=== PATIENT | female | born 1955 | race Caucasian/White ===

== ENCOUNTER 2022-08-10 14:25 | Outpatient (CLI) | payer MEDICARE, BC, SELFPAY ==
--- OUTSIDE RECORDS SUMMARY | 2022-08-10 08:30 | XMS_ITS | Clinical Summary ---
:1955 Author Organization [facility] [place] [address] Care Team Providers Name Role Phone Unavailable Primary Care Provider Unavailable Allergies Active Allergy Reactions Severity Noted Date Comments Sulfamethoxazole-Trimethoprim Nausea Only 12/17/2014 Codeine Edema 08/16/2007 Hydrocodone-Acetaminophen Hives, Shortness Of Breath 1 Penicillins Rash 08/16/2007 Medications Medication Sig Dispensed Refills Start Date End Date Status aspirin 81 mg tablet Take 1 tablet by 1 tablet 0 09/18/2010 Active mouth once daily with a meal. calcium with vitamin D3 Take 1 tablet by 0 6 Active (CALCIUM 500+D) tablet mouth 3 times daily with meals. lancets (ACCU-CHEK Test 2 times per 200 Each 3 01/30/2016 Active MULTICLIX day. LANCET)Indications: Diabetes type 2, uncontrolled Blood-Glucose Meter Dispense glucose 1 Device 0 08/05/2016 Active (CONTOUR NEXT meter, test METER)Indications: strips and Uncontrolled diabetes lancets covered mellitus type 2 without by the patient complications, insurance. Test unspecified computer terminal operator 2 times per day. insulin use status hydrOXYzine HCl 1/2-1 tab at 10 tablet 0 02/28/2019 Active (ATARAX) 25 mg night at need tabletIndications: for anxiety Claustrophobia attack amLODIPine (NORVASC) 10 TAKE 1 TABLET BY 90 tablet 2 9 Active mg tabletIndications: MOUTH ONCE Hypertension, DAILY. unspecified type clobetasol cream 0.05% Use 1-2 times a 45 g 0 06/26/2019 Active (TEMOVATE) 0.05 % day on foot til creamIndications: resolved Granuloma annulare losartan (COZAAR) 100 Take 1 tablet by 90 tablet 3 06/26/2019 Active mg tabletIndications: mouth once HTN (hypertension) daily. glipiZIDE TAKE TWO TABLETS 60 tablet 0 10/27/2019 Ac tive extended-release ONCE DAILY (GLUCOTROL XL) 10 mg BEFORE A MEAL Extended-Release tabletIndications: Type 2 diabetes mellitus with hyperglycemia, without long-term current use of insulin (HC) metFORMIN (GLUCOPHAGE TAKE 4 TABLETS 120 tablet 0 12/01/2019 Active XR) 500 mg BY MOUTH DAILY Extended-Release tabletIndications: Type 2 diabetes mellitus with hyperglycemia, without long-term current use of insulin (HC) atorvastatin (LIPITOR) TAKE 1 TABLET BY 30 tablet 0 02/01/2020 Active 40 mg MOUTH AT tabletIndications: BEDTIME. 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 Osteoarthritis of both knees 08/15/2015 Mixed hyperlipidemia 05/15/2011 Diabetes mellitus type II 08/24/2010 HTN (hypertension) 10/29/2008 Other Atopic Dermatitis and Related Conditions 008 Resolved Problems Problem Noted Date Resolved Date Vitamin D deficiency 08/22/2010 06/27/2013 Rotator cuff tear 08/19/2010 06/27/2013 Tobacco use disorder 08/19/2010 06/27/2013 Dislocated shoulder 05/13/2010 06/27/2013 Postmenopausal bleeding 10/29/2008 05/13/2010 Immunizations Name Administration Dates Next Due Influenza, IIV3 (Age >=3 years) 10/29/2008 Influenza, IIV4 11/01/2018, 11/24/2016, 02/27/2016, 08/28/2014 Td (Age >=7 Years) 05/30/2003 Tdap 08/28/2013 Zoster (Zostavax-ZVL, live) 12/17/2014 Family History Medical History Relation Name Comments Hyperlipidemia Brother Hypertension Brother Hyperlipidemia Mother Other Mother Brain anurysm Hypertension Sister Cancer-breast No Family History Cancer-colon No Family History Relation Name Status Comments Brother Father Alive chf Mother (Age 83) no heart probl ems Sister Social History Tobacco Use Types Packs/Day Years Used Date Former Smoker Cigarettes 0.5 30 Quit: 11/29/19 16 Smokeless Tobacco: Never Used Tobacco Cessation: Counseling Given: Yes Comments: off an on for 30 years Alcohol Use Standard Drinks/Week Comments Yes 0 (1 standard drink = 0.6 oz pure alcoho l) Alcohol Habits Answer Date Recorded How often do you have a drink containing alcohol? 2-4 times a month 06/26/2019 How many drinks containing alcohol do you have on a 1 or 2 06/26/2019 typical day when you are drinking? How often do you have six or more drinks on one Never 06/26/2019 occasion? Comment: Not asked Sex Assigned at Date Recorded Not on file Obstetrics History Para Term AB IAB SAB Ectopic Multiple Living Live Births 2 2 2 0 0 0 0 0 0 2 2 Date Outcome GA Total Labor/2nd/3rd Weight Sex Delivery Anes PTL Jenn A 1 A5 Name Clin Labor Term Vag Jacki ng Term Vag Jacki ng Last Filed Vital Signs Vital Sign Reading Time Taken Comments Blood Pressure 111/73 06/26/2019 9:32 AM CDT Pulse 83 06/26/2019 9:32 AM CDT Temperature 36.9 ??C (98.4 ??F) 06/03/2017 11:23 AM CDT Respiratory Rate 18 01/30/2016 4:10 PM PRINCIPAL CLERK Oxygen Saturation 98% 06/26/2019 9:32 AM CDT Inhaled Oxygen Concentration - - Weight 98.4 kg (217 lb) 06/26/2019 9:32 AM CDT Height 161.7 cm (5' 3.66) 02/28/2019 3:30 PM CDT Body Mass Index 37.65 02/28/2019 3:30 PM CDT Plan of Treatment Health Maintenance Due Date Last Done Comments COVID-19 vaccine series (#1) 1955 Hepatitis C screening for age 0403/14/1972 18-79 Zoster (shingles) series for age 0302/11/2015 12/17/2014 50+ (2 of 3) DEXA/DXA scan for age 65+ 2019 Pneumococcal series for age 65+ (1 2019 - PCV) Depression screening for age 12+ 11/01/2019 11/01/2018, 09/2017, 01/30/2016 BMI (ht and wt on same day) for 02/29/2020 02/28/2019, 12/02/2018, age 18+ 06/20/2018, Additional history exists Mammogram for age 45-75 05/16/2020 05/16/2019, 05/12/2018, 05/10/2017, Additional history exists Influenza for age 65+ 07/30/2022 11/01/2018, 11/24/2016, 02/27/2016, Additional history exists Colonoscopy through age 75 06/09/2023 06/09/2018, 8, 11/01/2008 Tetanus booster 08/28/2023 08/28/2013, 08/28/2013, 05/30/2003 Lipids for age 45-75 06/26/2024 06/26/2019, 02/28/2019, 11/01/2018, Additional history exists Tdap Completed 08/28/2013 Results Not on filefrom Last 3 Months Insurance Payer Benefit Plan / Subscriber ID Effective Dates Phone Addre ss Type Group BLUE CROSS BLUE CROSS OF [id number] 2016-Present [address] [place] [address] (Work) [phone]
[2022-08-10 13:20] LABS: Creatinine Urine 137.1 mg/dL
[2022-08-10 13:26] LABS: Microalbumin Creatinine Ratio 60 mg/g (0-30); Microalbumin Urine 9 mg/dL
[2022-08-10 14:38] LABS: Chloride* 103 mmol/L (96-114); Potassium* 4.8 mmol/L (3.6-5.1); Sodium* 139 mmol/L (135-149)
[2022-08-10 14:40] LABS: Cholesterol* 146 mg/dL (90-199); Creatinine* 0.7 mg/dL (0.5-1.5); Estimated Glomerular Filt Rate 94 ml/min
[2022-08-10 14:41] LABS: Blood Urea Nitrogen* 15 mg/dL (7-30); Calcium* 9.3 mg/dL (8.4-10.6); Carbon Dioxide* 27 mmol/L (20-32); Glucose* 208 mg/dL (60-115); HDL Cholesterol* 47 mg/dL (>=50); LDL Cholesterol Calculated 63 mg/dL (<100); Triglycerides* 181 mg/dL (40-149)
== END 2022-08-10 14:26 | disposition home or self-care (01) ==
PROVIDERS: PCP Family Medicine; Visit Provider Family Medicine
DX: E11.9 Type 2 diabetes mellitus without complications (principal); I10 Essential (primary) hypertension; E55.9 Vitamin D deficiency, unspecified; E78.5 Hyperlipidemia, unspecified; F41.9 Anxiety disorder, unspecified; E66.9 Obesity, unspecified; Z13.6 Encounter for screening for cardiovascular disorders; R80.9 Proteinuria, unspecified
CPT/HCPCS: 80048; 80061; 82043; 82570

== ENCOUNTER 2022-11-02 13:45 | Outpatient (RCR) | payer MEDICARE, BC, SELFPAY ==
--- NOTE | 2022-09-02 16:10 | PT.OPEX ---
Please sign the attached PT evaluation. Thank you. PT [facility] PT [facility] Outpatient Eval Start: 08/28/22 15:53 Freq: Status: Active Protocol: Document 09/02/22 12:25 TLQ (Rec: 09/02/22 16:04 TLQ [id number]) E-signed By Dana Pichardo DPT Physical Therapy Outpatient Evaluation Insurance Information Recert Due Date 12/01/22 Insurance Name Medicare B,Blue Cross/Blue Shield Medical Diagnosis Pain in R knee Chronic pain Treating Diagnosis Pain in R knee (M25.561) Stiffness of R knee (M25.661) Referring MD Keller Subjective Subjective Patient reports she has pain in her R knee, has been going on for a few years. Pain primarily occurs on inside of knee when walking up/down a hill or when going up/down stairs. Can walk 1.5 miles on flat ground before it hurts. Knee feels stiff after periods of prolonged sitting. Saw her MD a few weeks ago, was prescribed ibuprofen which has been helping relieve some of her pain. X-rays were taken at this appointment, indicated significant osteoarthritis. Has tried a knee brace in the past but doesn't wear it very often. If she's had a long day of walking her knee can bother her at night making it difficult to sleep. Pain Comments No pain at rest 5/10 when walking downhill Current Work Status Retired Precautions Treatment Precautions/Contraindications Has vertigo - requires slow position changes, does not tolerate laying completely flat Therapy Limitations/Systems Review Not Limited Objective Range of Motion Knee: L 1-5-122 R 2-8-126 Strength Hip: flexion - L 4, R 4- abduction - 5 adduction - 5 internal rotation - L 5, R 4- medial knee pain external rotation - L 4+, R 4 Knee: flexion - 5 extension - 5 Ankle/foot: dorsiflexion - 5 plantarflexion - L 23 DLHR, R 20 DLHR 50% excursion Palpation Non tender with palpation of surrounding landmarks and soft tissues R patellar hypomobility in all glides R posterior tibial glide hypomobility Balance & Gait Balance: 5xSTS - 10 seconds SLS - L 7 seconds, R <1 seconds Gait - Trendelenburg on R Other/Pertinent Objective Knee: Tibiofemoral distraction - positive response Thessaly test - positive on R for medial joint pain Functional Test Performed & Score LEFS - 64/80 Assessment Assessment/Impression Patient is a 67 year old female who presents to physical therapy today with chronic R knee pain. Recently had x-rays taken which indicated knee osteoarthritis, likely in medial compartment based off examination findings today. Pain primarily limits the patients ability to navigate stairs and ambulate over uneven terrain pain-free. Upon examination she had hip weakness and medial knee pain with Thessaly test. Possible meniscal involvement with pain , likely due to age-related changes due to lack of reported trauma to the knee. Patient lacks full active knee extension and was hypomobile with posterior tibial glide. Difficulty balancing on R LE, ambulated with R Trendelenburg pattern. She will benefit from skilled interventions to increase LE strength, balance, and AROM in order to reduce intensity of R knee symptoms during weightbearing. Primary Functional Limitations pain in R knee, stiffness in knee after prolonged sitting, pain in R knee with stairs, pain when walking downhill Plan of Care Rehabilitation Potential Good Physical Therapy Goals STG - Patient will improve SLS on R to 5 seconds for improved balance in 4 weeks. STG - Patient will decrease subjective report of pain from 5/10 to 2/10 to navigate stairs with decreased symptoms in 4 weeks. LTG - Patient will improve R knee AROM for extension to 0 degrees/neutral in 8 weeks. LTG - Gross hip strength will increase to 5/5 for improved functional strength in 8 weeks . LTG - SL balance with improve to >10 seconds on each leg for improved balance when navigating uneven terrain in 8 weeks. LTG - Patient will adhere to HEP to manage symptoms IND at home in 8 weeks. Treatment Plan/Direct Interventions Joint Mobilization,Manual Therapy,Therapeutic Activities ,Therapeutic Exercises Frequency/Duration 1x/week for 6-8 weeks Patient Will Be Discharged From Therapy Completion of LTG(s),Skills Plateau,Independent w/HEP, Independently Progressing Evaluation Billing Untimed Code Treatment Minutes 30 Complexity Low Certification Information Initial Certification Date 09/02/22 Ending Certification Date 12/01/22 Provider Signature Shows Agreement With POC & Medical Necessity Physician Comment/Change Comment or Changes Physician NPI Number #
== END 2022-11-04 17:16 | disposition home or self-care (01) ==
PROVIDERS: PCP Family Medicine; Visit Provider Family Medicine
DX: M25.561 Pain in right knee (principal); Z51.89 Encounter for other specified aftercare
CPT/HCPCS: 97110; 97140; 97161

== ENCOUNTER 2023-07-06 09:27 | Outpatient (CLI) | payer MEDICARE, BC, SELFPAY ==
--- NOTE | 2023-10-04 15:27 | PC.SOCIAL ---
Social work: At request of ortho clinic, called pt, who is interested in scheduling knee surgery in November and answered questions she had about insurance coverage for [facility] facility after surgery. Pt states she does not want to pay privately for rehab, so will find a friend to stay with her as needed for a few days so taht she can return home. She is interested in home health care when discharged home if she qualifies for this to help her recover at home and for a bathing aid.
== END 2023-07-06 09:28 | disposition home or self-care (01) ==
PROVIDERS: PCP Family Medicine; Referring Provider Family Medicine; Visit Provider Family Medicine
DX: I10 Essential (primary) hypertension (principal)
CPT/HCPCS: 80048

== ENCOUNTER 2023-10-08 09:15 | Outpatient (CLI) | payer MEDICARE, BC, SELFPAY | END 2023-10-08 09:16 | disposition home or self-care (01) | LOC: NFLDREF 10-12 23:03 | PROVIDERS: PCP Family Medicine; Referring Provider Family Medicine; Visit Provider Family Medicine | DX: I10 Essential (primary) hypertension (principal); E78.5 Hyperlipidemia, unspecified; E11.9 Type 2 diabetes mellitus without complications; R10.9 Unspecified abdominal pain | CPT/HCPCS: 80053; 80061; 82043; 82570 ==

== ENCOUNTER 2023-10-13 16:08 | Outpatient (CLI) | payer MEDICARE, BC, SELFPAY | END 2023-10-13 16:09 | disposition home or self-care (01) | LOC: NFLDREF 16:09 | PROVIDERS: PCP Family Medicine; Visit Provider Family Medicine | DX: R30.0 Dysuria (principal) | CPT/HCPCS: 87086; 87186 ==

== ENCOUNTER 2023-11-03 08:35 | Outpatient (CLI) | payer MEDICARE, BC, SELFPAY | END 2023-11-03 08:36 | disposition home or self-care (01) | LOC: NFLDREF 11-04 10:09 | PROVIDERS: PCP Family Medicine; Referring Provider Family Medicine; Visit Provider Family Medicine | DX: I10 Essential (primary) hypertension (principal) | CPT/HCPCS: 80048 ==

== ENCOUNTER 2023-12-09 09:09 | Outpatient (CLI) | payer MEDICARE, BC, SELFPAY ==
--- OUTSIDE RECORDS SUMMARY | 2023-12-09 09:12 | XMS_ITS | Clinical Summary ---
Author Name Unknown Organization [facility] Address [place], [place] [address] Care Team Providers Care Barrel Centerer Name Role Phone Unavailable Primary Care Provider Unavailabl e Allergies Active Allergy Reactions Criticality Noted Date Comments Sulfamethoxazole-Trimethopri m Nausea Only 12/17/2014 Codeine Edema 08/16/2007 Hydrocodone-Acetaminophen Hives,Shortness Of Breath 09/04/2010 Penicillins Rash 08/16/2007 Medications Medication Sig Dispensed Refills Start Date End Date Status aspirin 81 mg tablet Take 1 tablet by mouth once daily with a meal. 1 tablet 0 09/18/2010 Active calcium with vitamin D3 (CALCIUM 500+D) tablet Take 1 tablet by mouth 3 times daily with meals. 0 01/30/2016 Active lancets (ACCU-CHEK MULTICLIX LANCET)Indications:Sommer betes type 2, uncontrolled Test 2 times per day. 200 Each 3 01/30/2016 Active Blood-Glucose Meter (CONTOUR NEXT METER)Indications:Unco ntrolled diabetes mellitus type 2 without complications, unspecified mcfp insulin use status Dispense glucose meter, test strips and lancets covered by the patient insurance. Test 2 times per day. 1 Device 0 08/05/2016 Active hydrOXYzine HCl (ATARAX) 25 mg tabletIndications:Anayeli strophobia 1/2-1 tab at night at need for anxiety attack 10 tablet 0 02/28/2019 Active amLODIPine (NORVASC) 10 mg tabletIndications:Hype rtension, unspecified type TAKE 1 TABLET BY MOUTH ONCE DAILY. 90 tablet 2 04/26/2019 Active clobetasol cream 0.05% (TEMOVATE) 0.05 % creamIndications:Granu endy annulare Use 1-2 times a day on foot til resolved 45 g 0 06/26/2019 Active losartan (COZAAR) 100 mg tabletIndications:HTN (hypertension) Take 1 tablet by mouth once daily. 90 tablet 3 06/26/2019 Active glipiZIDE extended-release (GLUCOTROL XL) 10 mg Extended-Release tabletIndications:Type 2 diabetes mellitus with hyperglycemia, without long-term current use of insulin (HC) TAKE TWO TABLETS ONCE DAILY BEFORE A MEAL 60 tablet 0 10/27/2019 Active metFORMIN (GLUCOPHAGE XR) 500 mg Extended-Release tabletIndications:Type 2 diabetes mellitus with hyperglycemia, without long-term current use of insulin (HC) TAKE 4 TABLETS BY MOUTH DAILY 120 tablet 0 12/01/2019 Active atorvastatin (LIPITOR) 40 mg tabletIndications:Hype rlipidemia, unspecified hyperlipidemia type TAKE 1 TABLET BY MOUTH AT BEDTIME. 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 Osteoarthritis of both knees 08/15/2015 Mixed hyperlipidemia 05/15/2011 Diabetes mellitus type II 08/24/2010 HTN (hypertension) 10/29/2008 Other Atopic Dermatitis and Related Conditions 1 12/30/2007 Resolved Problems Problem Noted Date Diagnosed Date Resolved Date Vitamin D deficiency 08/22/2010 013 Rotator cuff tear 08/19/2010 06/27/2013 Tobacco use disorder 08/19/2010 013 Dislocated shoulder 05/13/2010 06/27/20 13 Postmenopausal bleeding 10/29/200804/29 Immunizations Name Administration Dates Next Due Influenza, IIV3 (Age >=3 years) 10/29/2008 Influenza, IIV4 11/01/2018,11/24/2016,02/27/2016 ,08/28/2014 Td (Age >=7 Years) 05/30/2003 Tdap 08/28/2013 Zoster (Zostavax-ZVL, live) 12/17/2014 Family History Medical History Relation Name Comments Hyperlipidemia Brother Hypertension Brother Hyperlipidemia Mother Other Mother Brain anurysm Hypertension Sister Cancer-breast No Family History Cancer-colon No Family History Relation Name Status Comments Brother Father Alive chf Mother (Age 83) no heart p roblems Sister Social History Tobacco Use Types Packs/Day Years Used Date Smoking Tobacco: Former Cigarettes 0.5 30 0 11/29/1985 - 11/29/2015 Smokeless Tobacco: Never Tobacco Cessation:Counseling Given: Yes Comments:off an on for 30 years Alcohol Use Standard Drinks/Week Comments Yes 0 (1 standard drink = 0.6 oz pur e alcohol) PHQ-2 Answer Date Recorded PHQ-2 Score 0 01/29/2019 Sex and Gender Information Value Date Recorded Sex Assigned at Not on file Gender Identity Not on file Sexual Orientation Not on file Obstetrics History Para Term AB IAB SAB Ectopic Multiple Livin g Live Births 2 2 2 0 0 0 0 0 0 2 2 Date Outcome GA Total Labor Labor/2nd/3rd Weight Sex Delivery Anes PTL Jenn A1 A5 Name Cl in Term Vag Jacki ng Term Vag Jacki ng Last Filed Vital Signs Vital Sign Reading Time Taken Comments Blood Pressure 111/73 06/26/2019 9:32 AM CDT Pulse 83 06/26/2019 9:32 AM CDT Temperature 36.9 ??C (98.4 ??F) 06/03/2017 11:23 AM C DT Respiratory Rate 18 01/30/2016 4:10 PM 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 Oxygen Saturation 98% 06/26/2019 9:32 AM CDT Inhaled Oxygen Concentration - - Weight 98.4 kg (217 lb) 06/26/2019 9:32 AM CDT Height 161.7 cm (5' 3.66) 02/28/2019 3:30 PM CD T Body Mass Index 37.65 02/28/2019 3:30 PM CDT Plan of Treatment Health Maintenance Due Date Last Done Comments COVID-19 vaccine series (#1) 1955 Hepatitis C screening for ag e 18-79 1972 Zoster (shingles) series for age 50+ (2 of 3) 02/11/2015 12/17/2014 DEXA/DXA scan for age 65+ 2019 Pneumococcal series for age 65+ (1 of 1 - PCV) 2019 Depression screening for age 12+ 11/01/2019 11/01/2018, 04/08/2017, 01/30/2016 BMI (ht and wt on same day) for age 18+ 02/29/2020 02/28/2019, 11/01/2018, 06/20/2018, Additional history exists Mammogram for age 45-75 05/16/2020 05/16/20 19, 05/12/2018, 05/10/2017, Additional history exists Colonoscopy through age 75 06/09/202306/09, 06/09/2018, 11/01/2008 Influenza for age 65+ 07/30/2023 11/01/2018 , 11/24/2016, 02/27/2016, Additional history exists Tetanus booster 08/28/2023 08/28/2013, 08/01, 05/30/2003 Lipids for age 45-75 06/26/2024 06/26/2019, 02/28/2019, 11/01/2018, Additional history exists Tdap Completed 08/28/2013
--- NOTE | 2023-12-09 10:31 | W.ANESCHARGE ---
Anesthesia Charges Start Date/Time Anesthesia Start Date: 12/09/23 Anesthesia Start Time: 10:05 Stop Date/Time Anesthesia Stop Date: 12/09/23 Anesthesia Stop Time: 11:01
--- NOTE | 2023-12-09 11:08 | W.ANESCHARGE ---
Anesthesia Charges Start Date/Time Anesthesia Start Date: 12/09/23 Anesthesia Start Time: 10:05 Stop Date/Time Anesthesia Stop Date: 12/09/23 Anesthesia Stop Time: 11:01
== END 2023-12-09 09:10 | disposition home or self-care (01) ==
LOC: OP CLINIC 09:10
PROVIDERS: PCP Family Medicine; Visit Provider Surgery
DX: Z12.11 Encounter for screening for malignant neoplasm of colon (principal); K63.5 Polyp of colon; K64.4 Residual hemorrhoidal skin tags; Z86.010 Personal history of colon polyps
CPT/HCPCS: 00811; 45381; 45385; 88305; J2704

== ENCOUNTER 2023-12-14 11:10 | Outpatient (CLI) | payer MEDICARE, BC, SELFPAY ==
--- OUTSIDE RECORDS SUMMARY | 2023-12-14 11:13 | XMS_ITS | Clinical Summary ---
Author Name Unknown Organization [employer] [facility] Address [place], [place] [address] Care Team Providers Care Maintenance Porter Name Role Phone Unavailable Primary Care Provider [...] diabetes mellitus type 2 without complications, unspecified termite helper insulin use status Dispense glucose meter, test [...] shoulder 05/13/2010 06/27/20 13 Postmenopausal bleeding 10/29/200804/29 Encounters Date Type Department Care Team Description 12/09/2023 Lab Requisition [facility] [phone] Cezar Guido MD from Last 3 Months Immunizations Name Administration Dates Next Due Influenza, [...] DT Respiratory Rate 18 01/30/2016 4:10 PM CARD DECORATOR Oxygen Saturation 98% 06/26/2019 9:32 AM CDT [...] 11/01/2018, Additional history exists Tdap Completed 08/28/2013 Procedures Procedure Name Priority Date/Time Associated Diagnosis Comments LAB TRACKING EVENT Routine 12/09/2023 10 :15 AM CARD DECORATOR PATH TISSUE EXAM Routine 12/09/2023 10:1 5 AM CARD DECORATOR from Last 3 Months Results * LAB TRACKING EVENT (12/09/2023 10:15 AM CARD DECORATOR) Other (Other) Client Collect / Unknown 12/09/2023 10:15 AM CARD DECORATOR 12/09/2023 9:10 PM CARD DECORATOR Cezar Guido MD LAB BILL ONLY [facility] [address] [place] [address], * PATH TISSUE EXAM (12/09/2023 10:15 AM CARD DECORATOR) Case Report Pathology Report ?Case: [id number] ? Authorizing Provider: ??Cezar Guido MD ?Collected: ? 12/09/2023 1015 ? Ordering Location: ? [facility] ?Received: ?12/10/20231 ? Pathologist: ? Vicky Tejada MD ? Specimens: ?? A) - Transverse Colon Polyp ? B) - Hepatic Flexure Polyp ? C) - Transverse Colon Polyp ? D) - Rectal-Sigmoid Polyp ? 12/13/2023 9:36 AM CARD DECORATOR [employer] LABORATORY-C ENTRAL LABORATORY Final Diagnosis A) COLON, TRANSVERSE, POLYPECTOMIES: 1. Tubular adenomas (2) and sessile serrated adenoma (1) 2. Negative for high grade dysplasia 3. Per the colonoscopy report: ?? a. Polyp sizes: 3 mm - 7 mm ?? b. Resection: Complete ?? c. Retrieval: Complete B) COLON, HEPATIC FLEXURE, POLYPECTOMY: 1. Tubular adenoma 2. Negative for high grade dysplasia 3. Per the colonoscopy report: ?? a. Polyp size: 4 mm ?? b. Resection: Complete ?? c. Retrieval: Complete C) COLON, TRANSVERSE, POLYPECTOMY: 1. Tubular adenoma consistent with advanced adenoma due to size (see comment) 2. Negative for high grade dysplasia and malignancy 3. Per the colonoscopy report: ?? a. Polyp size: 14 mm ?? b. Resection: Complete ?? c. Retrieval: Complete D) COLON, RECTOSIGMOID, POLYPECTOMIES: 1. Tubular adenoma (1) and hyperplastic polyp (1) 2. Negative for high grade dysplasia 3. Per the colonoscopy report: ?? a. Polyp sizes: 4 mm - 5 mm ?? b. Resection: Complete ?? c. Retrieval: Complete 12/13/2023 9:36 AM CARD DECORATOR [employer]-C ENTRAL LABORATORY Comment C) Advanced adenoma of the colorectum is defined by the [place] [employer] (ACG) as an adenoma that is 1 cm or more in size, contains an appreciable villous component, or has high grade dysplasia (Tyler, Michelle. [2008] Gastroenterology, PMID - [id number]). Patients with advanced adenomas are at an increased risk for synchronous and metachronous additional advanced adenomas. Appropriate follow-up is suggested. 12/13/2023 9:36 AM [employer] software LABORATORY-C ENTRAL LABORATORY Clinical Information Colonoscopy. Indications: High risk colon cancer surveillance-perso nal history colonic polyps. Last colonoscopy May 2018. Findings: Three 3 to 7 mm polyps in the transverse, single 4 mm polyp at the hepatic flexure, single 14 mm polyp in the transverse colon, and two 4 to 5 mm polyps in the rectosigmoid colon. All resected and retrieved. 12/13/2023 9:36 AM [facility] Gross Description A) Received in formalin is a 24 x 10 x 2 mm aggregate of multiple atkins mucosal fragments which are entirely submitted in one cassette. ??It is labeled with the patient's name and designated transverse colon polyp. B) Received in formalin are 4 atkins mucosal fragments ranging from 2 mm to 10 mm in greatest dimension, which are entirely submitted in one cassette. It is labeled with the patient's name and designated hepatic flexure polyp. C) Received in formalin are 4 atkins mucosal fragments averaging 7 mm in greatest dimension. ??Additionally received the container is a 28 x 9 x 2 mm aggregate of multiple atkins mucosal fragments. ??Tissue is entirely submitted in two cassettes. ??It is labeled with the patient's name and designated transverse colon polyp. D) Received in formalin are 8 atkins mucosal fragments ranging from 3 mm to 9 mm in greatest dimension, which are entirely submitted in one cassette. It is labeled with the patient's name and designated recto-sigmoid polyp. Adali White 12/10/2023 1:38 PM 12/13/2023 9:36 AM [facility] Microscopic Description The final diagnosis is based on microscopic examination of appropriate sections of all specimens. 12/13/2023 9:36 AM [facility] Additional Information Interpreted at [facility], Central Laboratory - [address], [place] [address] 12/13/2023 9:36 AM [facility] [email or web address] LABORATORY-C ENTRAL LABORATORY Other (Transverse Colon Polyp) 12/09/2023 10:15 AM CARD DECORATOR 12/10/2023 1:11 PM CARD DECORATOR Specimen (specimen) (Hepatic Flexure Polyp) 12/09/2023 10:15 AM CARD DECORATOR 12/10/2023 1:11 PM CARD DECORATOR Specimen (specimen) (Transverse Colon Polyp) 12/09/2023 10:15 AM CARD DECORATOR 12/10/2023 1:11 PM CARD DECORATOR Specimen (specimen) (Rectal-Sigmoid Polyp) 12/09/2023 10:15 AM CARD DECORATOR 12/10/2023 1:11 PM CARD DECORATOR Cezar Guido MD PATHOLOGY/CYTOLOGY [facility]-CENTRAL LABORATORY [address] [place] [address], from Last 3 Months
== END 2023-12-14 11:11 | disposition home or self-care (01) ==
LOC: NFLDREF 11:12
PROVIDERS: PCP Family Medicine; Visit Provider Family Medicine
DX: E11.9 Type 2 diabetes mellitus without complications (principal); I10 Essential (primary) hypertension
CPT/HCPCS: 80048

== ENCOUNTER 2023-12-28 10:29 | Day surgery (SDC) | payer MEDICARE, BC, SELFPAY ==
[2023-12-28] VITALS (21 sets, daily range): BP systolic 101–166; BP diastolic 40–88; PULSE 68–81; RESP 12–18; TEMP 35.8–37.2; O2SAT 92–97; BMI 38.6
--- OUTSIDE RECORDS SUMMARY | 2023-12-28 10:32 | XMS_ITS | Clinical Summary ---
Author Name Unknown Organization [facility] Address [place], [place] [address] Care Team Providers Care Retail Interior Designer Name Role Phone Unavailable Primary Care Provider [...] diabetes mellitus type 2 without complications, unspecified emt intermediate insulin use status Dispense glucose meter, test [...] Department Care Team Description 12/09/2023 Lab Requisition [facility] [phone] Cezar Guido MD from Last 3 Months [...] DT Respiratory Rate 18 01/30/2016 4:10 PM INSTRUMENT AND CONTROL SERVICE PERSON Oxygen Saturation 98% 06/26/2019 9:32 AM CDT [...] TRACKING EVENT Routine 12/09/2023 10 :15 AM INSTRUMENT AND CONTROL SERVICE PERSON PATH TISSUE EXAM Routine 12/09/2023 10:1 5 AM INSTRUMENT AND CONTROL SERVICE PERSON from Last 3 Months Results * LAB TRACKING EVENT (12/09/2023 10:15 AM INSTRUMENT AND CONTROL SERVICE PERSON) Other (Other) Client Collect / Unknown 12/09/2023 10:15 AM INSTRUMENT AND CONTROL SERVICE PERSON 12/09/2023 9:10 PM INSTRUMENT AND CONTROL SERVICE PERSON Cezar Guido MD LAB BILL ONLY [facility] [address] [place] [address], * PATH TISSUE EXAM (12/09/2023 10:15 AM INSTRUMENT AND CONTROL SERVICE PERSON) Case Report Pathology Report ?Case: [id number] ? Authorizing Provider: ??Cezar Guido MD ?Collected: ? 12/09/2023 1015 ? Ordering Location: ? [facility] ?Received: ?12/10/20231 ? Pathologist: ? Vicky Tejada MD ? Specimens: ?? A) - Transverse Colon Polyp ? B) - Hepatic Flexure Polyp ? C) - Transverse Colon Polyp ? D) - Rectal-Sigmoid Polyp ? 12/13/2023 9:36 AM INSTRUMENT AND CONTROL SERVICE PERSON [facility] LABORAT[facility]-C ENTRAL LABORATORY Final Diagnosis A) COLON, [...] ?? c. Retrieval: Complete 12/13/2023 9:36 AM INSTRUMENT AND CONTROL SERVICE PERSON [facility]-C ENTRAL LABORATORY Comment C) Advanced adenoma of the colorectum is defined by the [place] [employer] G[employer] (ACG) as an adenoma that is 1 cm or more in size, contains an appreciable villous component, or has high grade dysplasia (Tyler, Michelle. [2008] Gastroenterology, PMID - [id number]). Patients with advanced adenomas are at an increased risk for synchronous and metachronous additional advanced adenomas. Appropriate follow-up is suggested. 12/13/2023 9:36 AM [facility] LABORATORY-C ENTRAL LABORATORY Clinical Information Colonoscopy. Indications: [...] All resected and retrieved. 12/13/2023 9:36 AM [facility] [place] [email or web address] ENTRAL LABORATORY Gross Description A) Received [...] White 12/10/2023 1:38 PM 12/13/2023 9:36 AM [facility] [place] [email or web address] ENTRAL LABORATORY Microscopic Description The final diagnosis is based on microscopic examination of appropriate sections of all specimens. 12/13/2023 9:36 AM [facility] [place] [email or web address] ENTRAL LABORATORY Additional Information Interpreted at [facility], Central Laboratory - [address] [address] 12/13/2023 9:36 AM [facility] LABORATORY-C ENTRAL LABORATORY Other (Transverse Colon Polyp) 12/09/2023 10:15 AM INSTRUMENT AND CONTROL SERVICE PERSON 12/10/2023 1:11 PM INSTRUMENT AND CONTROL SERVICE PERSON Specimen (specimen) (Hepatic Flexure Polyp) 12/09/2023 10:15 AM INSTRUMENT AND CONTROL SERVICE PERSON 12/10/2023 1:11 PM INSTRUMENT AND CONTROL SERVICE PERSON Specimen (specimen) (Transverse Colon Polyp) 12/09/2023 10:15 AM INSTRUMENT AND CONTROL SERVICE PERSON 12/10/2023 1:11 PM INSTRUMENT AND CONTROL SERVICE PERSON Specimen (specimen) (Rectal-Sigmoid Polyp) 12/09/2023 10:15 AM INSTRUMENT AND CONTROL SERVICE PERSON 12/10/2023 1:11 PM INSTRUMENT AND CONTROL SERVICE PERSON Cezar Guido MD PATHOLOGY/CYTOLOGY [facility] [address] [place] [address], from Last 3 Months
[2023-12-28] MEDS: ACETAMINOPHEN 500 MG TABLET 1000 MG PO ×3 (11:00→22:33)
[2023-12-28] MEDS: OXYCODONE (CR) 10 MG TAB.ER.12H PO (11:00)
[2023-12-28] MEDS: CELECOXIB 200 MG CAPSULE PO (11:00)
[2023-12-28] MEDS: LACTATED RINGERS 1000 ML 1,000 ML 100 ML IV ×2 (11:33→12:58)
--- NOTE | 2023-12-28 12:01 | SUR.PREOP ---
TIME?OUT:?1215 PT/RN/MDA?VERIFICATION?OF?SURGICAL?SITE,?PROCEDURE,?AND?CONSENT OBTAINED?PRIOR?TO?INVASIVE?PROCEDURE.
[2023-12-28] MEDS: fentaNYL 100 MCG/2 ML inj IVP (12:20)
[2023-12-28] MEDS: MIDAZOLAM HCL 1 MG/ML inj IVP (12:20)
[2023-12-28] MEDS: TRANEXAMIC ACID 100 MG/ML INJ 1000 MG IV (12:57)
[2023-12-28] MEDS: CEFAZOLIN 2 GM INJ IVP (12:57)
--- NOTE | 2023-12-28 13:29 | W.PM.NB ---
Nerve Block Nerve Block Time Seen by Provider: 12:25 Date Seen: 12/28/23 Type of block requested by surgeon for post-operative analgesia: adductor canal Side: right Time out performed: Yes Verification of patient name: Yes Verification of date of : Yes Site marking: site marked Name of person performing procedure: Obed Assistants, if any: Henrique Continuous monitoring Was continuous monitoring of O2 sat, B/P, manufacturing process technician, recorded every 15 minutes?: Yes Procedure Checklist: sterile prep, needles and gloves Ultrasound guided. Images saved: Yes Medications given in 5ml increments after negative aspiration: Ropivicaine %: 0.5 mL: 20 Needle gauge: 20 Decadron (mg): 10 Precedex (mcg): 25 Patient tolerated procedure well: Yes Additional comments: Needle noted adjacent to nerve Block Charges Block Charge (with Pro Fee): Femoral Nerve Use of Ultrasound Machine for Block: Yes- US Guidance/pain block
--- NOTE | 2023-12-28 13:31 | W.PM.NB ---
Nerve Block Nerve Block Time Seen by Provider: : Date Seen: 12/28/23 Type of block requested by surgeon for post-operative analgesia: geniculars Side: right Time out performed: Yes Verification of patient name: Yes Verification of date of : Yes Site marking: site marked Name of person performing procedure: Obed Assistants, if any: Henrique Continuous monitoring Was continuous monitoring of O2 sat, B/P, drop forger helper, recorded every 15 minutes?: Yes Procedure Checklist: sterile prep, needles and gloves Medications given in 5ml increments after negative aspiration: Ropivicaine %: 0.5 mL: 9 Needle gauge: 25 Patient tolerated procedure well: Yes Block Charges Block Charge (with Pro Fee): Genicular Nerve Block Use of Ultrasound Machine for Block: No
--- NOTE | 2023-12-28 13:31 | W.ANESCHARGE ---
Anesthesia Charges Start Date/Time Anesthesia Start Date: 12/28/23 Anesthesia Start Time: 12:32 Stop Date/Time Anesthesia Stop Date: 12/28/23 Anesthesia Stop Time: 14:52
--- NOTE | 2023-12-28 14:08 | CRLHL7_ITS ---
For Patients: As a result of the Cures Act, medical imaging exams and procedure reports are released immediately into your electronic medical record. You may view this report before your referring provider. If you have questions, please contact your health care provider. INDICATION: Postop right knee. TECHNIQUE: AP and cross-table lateral views of the right knee. COMPARISON: None. FINDINGS: Immediate postop changes of right total knee arthroplasty. Prosthetic components well-seated and aligned. IMPRESSION: Immediate postop changes of right total knee arthroplasty without evidence of complication. Dictated by Albert Baumann MD @ 12/29/2023 8:14:38 AM (Electronically Signed)
--- NOTE | 2023-12-28 14:11 | PM.ORPRC ---
Procedure Note Date of procedure: 12/28/23 Procedure: PREOPERATIVE DIAGNOSIS: Right knee osteoarthritis POSTOPERATIVE DIAGNOSIS: Right knee osteoarthritis NAME OF OPERATION: Right total knee arthroplasty SURGEON: Elmer Chaidez MD CRACKING STILL OPERATOR: PRESTON Herrera ANESTHESIA: Spinal ESTIMATED BLOOD LOSS: 0 mL COMPLICATIONS: None SPECIMENS: None DRAINS: None PREOPERATIVE ANTIBIOTICS: Ancef 2 grams, antibiotic impregnated cement IMPLANTS: 1. J&J Attune # 5 revision CRS posterior stabilized femur, with a 14 mm x 50 mm cemented stem 2. #4 revision CRS fixed-bearing tibia, with a 14 mm x 50 mm cemented stem 3. #5 posterior stabilized, 5 mm fixed-bearing polyethylene 4. 41 patella INDICATIONS: The patient is a 68-year-old with a longstanding history of severe, unrelenting right knee pain secondary to end-stage (grade IV) right knee osteoarthritis. Despite appropriate nonoperative management, including activity modification, anti-inflammatories, afwz-dzm-fzynguw pain medication, bracing, physical therapy, and injections they continue to have pain and disability. Operative intervention was offered. The risks, benefits and expected outcomes were discussed in detail. These included but were not limited to: Infection, bleeding, injury to blood vessel or nerve, venous thromboembolism. All questions were answered to their satisfaction. Use of an public aid eligibility assistant was necessary throughout the case for patient positioning and safety, soft tissue retraction, and closure. A modifier 22 should be added to this case. The patient's weight of 100 kg with a BMI of 39 requires stemmed components to reduce the risk of aseptic loosening. This added 25% more time than typical to complete the case. PROCEDURE: Spinal anesthesia was administered. The patient was placed supine on the operating table. The public aid eligibility assistant made sure the patient was positioned appropriately. The lower extremity was prepped and draped in the usual sterile fashion. The limb was exsanguinated with the Pete bandage. The pneumatic tourniquet was inflated to 300 mmHg. A standard anterior incision was made with the knee in flexion. Subcutaneous dissection was sharply taken through fascial layer #1. Full-thickness medial and lateral flaps were elevated. The public aid eligibility assistant retracted the soft tissues and protected them throughout the case. A standard subvastus approach was made. The patella was subluxed. The infrapatellar fat pad was preserved. The menisci and cruciate ligaments were sharply d?brided. Marginal osteophytes were d?brided with the rongeur. The drill was used to penetrate the femoral canal. The canal was aspirated and irrigated with pulse lavage. The intramedullary femoral guide was placed for a 5-degree valgus cut, removing 10 mm off the distal femur. The saw was used to make the cut. Whitesides line and the trans epicondylar axis were marked. The femoral sizing guide was pinned onto the distal femur. Three degrees of external rotation nicely parallels the transepicondylar axis. Pins were placed for posterior referencing. The four-in-one cutting guide was pinned onto the distal femur. The anterior, posterior, and chamfer cuts were made. The public aid eligibility assistant protected the collateral ligaments. The revision trial was placed. The box cuts were made. The drill was used x2. The stemmed, boxed trial was placed and was an excellent fit. Attention was then turned to the proximal tibia. The extramedullary tibial guide was placed for a neutral varus/valgus cut with 5 degrees of posterior slope, removing 2 mm based off the medial tibial surface. The public aid eligibility assistant protected the collateral ligaments and the neurovascular bundle. The saw was used to make the cut. Trial components were placed. The knee was nicely balanced in both flexion and extension. The trial components were removed. The tray was placed in appropriate rotation, parallel to our tibial cutting pins. It was pinned by the public aid eligibility assistant and the drill x2 was used. The stemmed tibial trial was placed. The punch was used. The tray was removed. The punch was used again. Attention was then turned to the patella. [place] patellar thickness was 22.5 mm. The lobster claw resection guide was used with the 7.5 mm gustavo. The saw was used to make the cut. Drill holes were made by the public aid eligibility assistant. The trial was placed and was an excellent fit. Cancellous surfaces were irrigated with pulse lavage and thoroughly dried by the public aid eligibility assistant. We cemented the tibial component, then the femoral component. We impacted the 5 mm polyethylene onto the tibial tray. The knee was brought into full extension. We then cemented the patellar component. Excessive cement was removed. The cement was allowed to harden. The knee was taken through a range of motion and was found to be nicely balanced in both flexion and extension. The patella tracks centrally. The public aid eligibility assistant did a three minute dilute Betadine solution soak. The public aid eligibility assistant irrigated the wound with 3 liters of normal saline via pulse lavage. The public aid eligibility assistant reapproximated the extensor mechanism with #1 Vicryl in an interrupted uidhov-oi-rlkag fashion. The public aid eligibility assistant then ran the extensor mechanism with a #1 PDO Stratafix. The public aid eligibility assistant closed the subcutaneous tissues with a 3-0 Stratafix and the skin with a running 3-0 Stratafix in a subcuticular fashion. Glue was used to seal the skin. The public aid eligibility assistant placed a dry dressing, ELSA stocking, and Polar Care. Sponge and needle counts were correct x2. The patient tolerated the procedure well. There were no apparent complications. They were carefully transferred to the hospital bed and taken to the postanesthesia care unit in satisfactory condition. PLAN: The patient will be mobilized with physical therapy. Aspirin will be used for DVT prophylaxis. They will be discharged to home once medically appropriate.
--- NOTE | 2023-12-28 14:57 | W.ANESCHARGE ---
Anesthesia Charges Start Date/Time Anesthesia Start Date: 12/28/23 Anesthesia Start Time: 12:32 Stop Date/Time Anesthesia Stop Date: 12/28/23 Anesthesia Stop Time: 14:52
[2023-12-28] MEDS: ONDANSETRON 2 MG/ML inj 4 MG IVP (15:47)
[2023-12-28] MEDS: LACTATED RINGERS 1000 ML 1,000 ML 75 ML IV (15:49)
[2023-12-28] MEDS: OXYCODONE 5 MG TABLET PO ×2 (18:11→22:33)
[2023-12-28] MEDS: CEFAZOLIN 2 GM in 0.9 % SODIUM CHLORIDE Mini-bag 100 ML IVPB (18:13)
[2023-12-28] MEDS: INSULIN ASPART 100 UNIT/ML SUBCUT ×2 (18:40→21:18)
--- NOTE | 2023-12-28 20:23 | PC.NURSE ---
shift note: pt to floor via bed. pt drowsy and expressing she's very nauseated and dizzy. Pt medicated with PrN zpfran with relief. vss per post op protocol. pt rating upper r knee pain 3/10 and medicated with prn tylenol and oxycodone. cms intact and PP intact bilat l/e. Pt dangled at side of bed @ 1700 and became dizzy with nausea. pt placed back to bed. pt tolerated supper. No void at this time.
[2023-12-28] MEDS: METFORMIN ER 500 MG 1000 MG PO (21:18)
[2023-12-28] MEDS: ASPIRIN 81 MG TABLET EC PO (21:18)
[2023-12-28] MEDS: ATORVASTATIN CALCIUM 40 MG TABLET PO (21:18)
[2023-12-28] MEDS: SENNOSIDES 1 TAB TABLET 2 TAB PO (21:18)
--- NOTE | 2023-12-28 23:24 | P.IMCN_ITS ---
Date of Consult Patient: [facility] Patient Consult date: 12/28/23 Requesting Physician: Orthopedics Primary Care Provider: Miri Keller MD Consult Narrative Reason for consult: s/p right total knee arthroplasty, medical management Narrative: Magi Hinojosa is a 68 year old woman undergoes elective right total knee arthroplasty successfully today for severe, symptomatic right gonarthrosis. Estimated blood loss 0 mL. Review of Systems Status of ROS: Reports: 10 or more systems reviewed and unremarkable except as noted in History and below PFSH PFSH Medical History H/O bone density study (03/2021) ?Z92.89 - Personal history of other medical treatment (ICD-10) Hypertension ?I10 - Essential (primary) hypertension (ICD-10) History of vitamin D deficiency ?Z86.39 - Personal history of other endocrine, nutritional and metabolic disease (ICD-10) History of closed dislocation of shoulder (10/01/09) ?Z87.39 - Personal history of other diseases of the musculoskeletal system and connective tissue (ICD-10) History of adenomatous polyp of colon (06/09/18) ?Z86.010 - Personal history of colonic polyps (ICD-10) Granuloma annulare ?L92.0 - Granuloma annulare (ICD-10) Diabetes mellitus (~2015) ?E11.9 - Type 2 diabetes mellitus without complications (ICD-10) Claustrophobia ?F40.240 - Claustrophobia (ICD-10) Anxiety ?F41.9 - Anxiety disorder, unspecified (ICD-10) Surgical History History of dilatation and curettage (05/27/16) ?Z98.890 - Other specified postprocedural states (ICD-10) History of vein stripping (2002) ?Z98.890 - Other specified postprocedural states (ICD-10) History of surgical removal of ganglion cyst (1973) ?Z98.890 - Other specified postprocedural states (ICD-10) History of repair of left rotator cuff (08/26/10) ?Z98.890 - Other specified postprocedural states (ICD-10) History of hysterectomy for benign disease (07/01/16) ?Z90.710 - Acquired absence of both cervix and uterus (ICD-10) Family History Mother Brain aneurysm Father Prostate cancer Brother Colon cancer, Onset Age: 60 Sister Colon cancer 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: , 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, 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,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, 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 Non-smoker- quit 2013, 40 years 5 cig/ day Social drinker- 1/ week Smoking Status: Former smoker What tobacco products do you use: cigarettes Smoking quit date/years: >15 years ago Do you use any of these nicotine containing products: None Second hand tobacco smoke exposure: No Little interest or pleasure in doing things: not at all Feeling down, depressed, or hopeless: not at all Meds Home Medications and Allergies Home Medications Medication Instructions Recorded Confirmed Type aspirin 81 mg tablet,delayed 81 mg PO QDAY 06/29/22 12/28/23 History release lancets (Accu-Chek Softclix 06/29/22 12/14/23 History Lancets) ascorbic acid (vitamin C) 500 mg 500 mg PO DAILY 07/08/23 12/28/23 History tablet calcium carbonate 600 mg calcium 600 mg PO DAILY 07/08/23 12/28/23 History (1,500 mg) tablet cholecalciferol (vitamin D3) 50 2,000 unit PO DAILY 07/08/23 12/28/23 History mcg (2,000 unit) capsule omega [id number]-[id number]-upg-fish oil 1,000 mg 1 cap PO QDAY 07/08/23 12/14/23 History (120 mg-180 mg) capsule (Fish Oil) diclofenac sodium 1 % topical gel 2 g topical QID 11/01/23 12/14/23 History (Motrin Arthritis Pain) Allergies Allergy/AdvReac Type Severity Reaction Status Date / Time hydrocodone Allergy Severe welts Verified 12/28/23 11:01 congestion (breathing issues) codeine Allergy Intermediate hives, Verified 12/28/23 11:01 swelling penicillin V Allergy Intermediate hives, Verified 12/28/23 11:01 swelling sulfamethoxazole AdvReac Nausea Verified 12/28/23 11:01 [From Sulfamethoxazole-Trimethoprim] trimethoprim AdvReac Nausea Verified 12/28/23 11:01 [From Sulfamethoxazole-Trimethoprim] Exam Narrative: Exam Narrative: Examined patient in her hospital room. Appears comfortable in no acute distress. Vision and hearing are grossly normal. Alert, oriented to self, place, time, situation. Friendly, articulate, cooperative. Lungs are clear to auscultation. Heart tones with regular rhythm. Abdomen with active bowel sounds. Moves all 4 extremities already. Her ready independent transfer, station. Const: Vital Signs, click to edit/add: Vital Signs - 24 hr 12/28/23 11:11 12/28/23 12:20 12/28/23 12:25 Temperature 99.0 F Pulse Rate 80 75 68 Pulse Rate [Left P ulse Oximeter] Respiratory Rate 16 16 16 Blood Pressure 154/71 H 166/86 H 135/88 Blood Pressure [Ri ght Arm] Pulse Oximetry 96 96 95 Oxygen Delivery Me thod Nasal Cannula Nasal Cannula Oxygen Flow Rate 3 3 12/28/23 14:47 12/28/23 14:55 12/28/23 15:00 Temperature 97.6 F Pulse Rate 69 75 78 Pulse Rate [Left P ulse Oximeter] Respiratory Rate 14 16 14 Blood Pressure 116/57 L 120/56 L 118/70 Blood Pressure [Ri ght Arm] Pulse Oximetry 93 94 94 Oxygen Delivery Me thod Nasal Cannula Oxygen Flow Rate 2 12/28/23 15:05 12/28/23 15:10 12/28/23 15:15 Temperature 96.8 F L Pulse Rate 75 74 75 Pulse Rate [Left P ulse Oximeter] Respiratory Rate 12 14 15 Blood Pressure 129/51 L 132/73 142/63 H Blood Pressure [Ri ght Arm] Pulse Oximetry 93 94 95 Oxygen Delivery Me thod Nasal Cannula Oxygen Flow Rate 2 12/28/23 15:22 12/28/23 15:22 12/28/23 15:30 Temperature 96.4 F L 96.4 F L 96.4 F L Pulse Rate 75 Pulse Rate [Left P ulse Oximeter] 75 Respiratory Rate 16 16 16 Blood Pressure Blood Pressure [Ri ght Arm] 109/53 L 109/53 L 113/64 Pulse Oximetry 93 93 Oxygen Delivery Me thod Room Air Room Air Room Air Oxygen Flow Rate 12/28/23 15:45 12/28/23 15:45 12/28/23 16:00 Temperature 96.4 F L 96.4 F L 96.4 F L Pulse Rate Pulse Rate [Left P ulse Oximeter] 81 74 77 Respiratory Rate 16 16 16 Blood Pressure Blood Pressure [Ri ght Arm] 151/62 H 116/61 101/40 L Pulse Oximetry 95 96 96 Oxygen Delivery Me thod Room Air Room Air Room Air Oxygen Flow Rate 12/28/23 16:15 12/28/23 16:30 12/28/23 17:00 Temperature 96.4 F L 96.4 F L 96.4 F L Pulse Rate Pulse Rate [Left P ulse Oximeter] 74 73 73 Respiratory Rate 16 16 16 Blood Pressure Blood Pressure [Ri ght Arm] 120/78 109/53 L 117/88 Pulse Oximetry 96 96 95 Oxygen Delivery Me thod Room Air Room Air Room Air Oxygen Flow Rate 12/28/23 18:00 12/28/23 19:00 12/28/23 20:00 Temperature 96.4 F L 97 F L 97 F L Pulse Rate Pulse Rate [Left P ulse Oximeter] 81 72 75 Respiratory Rate 16 18 16 Blood Pressure Blood Pressure [Ri ght Arm] 151/62 H 133/73 136/63 Pulse Oximetry 95 92 96 Oxygen Delivery Me thod Room Air Room Air Room Air Oxygen Flow Rate 12/28/23 21:00 Temperature 97.1 F L Pulse Rate Pulse Rate [Left P ulse Oximeter] 80 Respiratory Rate 16 Blood Pressure Blood Pressure [Ri ght Arm] 119/74 Pulse Oximetry 97 Oxygen Delivery Me thod Room Air Oxygen Flow Rate Documenting provider has reviewed patient's vital signs: yes Assessment and Plan Assessment and plan (1) Knee pain, right: Status: Acute (2) Osteoarthritis of both knees: Status: Chronic (3) Status post total right knee replacement: Problem comment: 12/28/2023, Dr. Chaidez Status: Acute (4) Hypertension: Problem comment: Resume home medications. Status: Chronic (5) Diabetes mellitus: Problem comment: Resume home medications. In hospital sliding scale insulin. Status: Chronic (6) Anxiety: Problem comment: Continue home medications. Status: Chronic (7) Dyslipidemia: Problem comment: Continue home medications. Status: Chronic Plan 1. Reviewed impression with patient and her sister and her son. 2. Plan as specified above. 3. Agree with postoperative venous thromboembolism prophylaxis. 4. Agree with perioperative antibiotic prophylaxis. 5. Hospitalist portion of discharge order completed.
[2023-12-29] MEDS: CEFAZOLIN 2 GM in 0.9 % SODIUM CHLORIDE Mini-bag 100 ML IVPB (01:44)
[2023-12-29 03:00] VITALS: BP 168/68; PULSE 88; RESP 18; TEMP 36.2; O2SAT 93
[2023-12-29] MEDS: OXYCODONE 5 MG TABLET PO ×3 (03:37→10:07)
[2023-12-29] MEDS: ACETAMINOPHEN 500 MG TABLET 1000 MG PO ×2 (05:10→11:34)
--- NOTE | 2023-12-29 06:48 | PC.NURSE ---
End of shift report [id number]: Alert and oriented x4. Pain to right knee well managed with scheduled and prn medications in addition to ice. Denies any nausea or dizziness. Patient reporting feeling restless at 0430, requesting to ambulate in the hallway, patient walked with SBA with gait belt and walker. Shellfish Checker followed up with patient 30 minutes later and patient reports continued restlessness. Denies pain, chest pain or shortness of breath and states that she just feels like she needs to go home and that she has trouble sleeping every night with the restless feeling. Shellfish Checker offered to walk with patient in the hallway again and patient agreed. After walking in the halls mortgage underwriter applied the rest aromatherapy per patient request. Patient was able to rest after walk.
[2023-12-29 07:32] LABS: Basophils Percent Auto 0.1 % (0.0-3.0); Hematocrit 33.1 % (33.0-51.0); Hemoglobin* 10.6 gm/dL (12.0-16.0); Immature Granulocytes Pct Auto 0.2 %; Lymphocytes Percent Auto 5.4 % (20-44); Mean Corpuscular HGB Conc 32 gm/dL (32-36); Mean Corpuscular Hemoglobin 28 pg (26-34); Mean Corpuscular Volume 88 fL (80-100); Monocytes Percent Auto 6.9 % (0.0-11.0); Neutrophils Percent Auto 87.4 % (42.0-72.0); Platelet Count* 305 K/uL (140-440); RDW Coefficient of Variation % 12.9 % (11.5-15.5); Red Blood Count 3.78 m/uL (4.00-5.20)
[2023-12-29 07:35] LABS: INR 0.96 (0.91-1.10); Prothrombin Time 13.3 Seconds
[2023-12-29 07:37] LABS: Slide Review Reflex No
[2023-12-29 07:40] LABS: Potassium* 4.3 mmol/L (3.6-5.1); Sodium* 133 mmol/L (135-149)
[2023-12-29 07:43] LABS: Blood Urea Nitrogen* 16 mg/dL (7-30); Creatinine* 0.6 mg/dL (0.5-1.5); Est. Creatinine Clearance* 41.99; Estimated Glomerular Filt Rate 97 ml/min
--- NOTE | 2023-12-29 08:30 | P.ORPN_ITS ---
Subjective Subjective Time Seen by Provider: 07:45 Date Seen: 12/29/23 Principal diagnosis: Status post right knee replacement Interval history: Magi is comfortable this morning. She is easily able to straight leg raise and flex and extend her right knee. She has walked around [facility]. Will discharge to home today. Ortho Exam Narrative Exam Narrative: Alert and oriented x3. Patient is in no acute distress. Converses without labored breathing. Hearing is grossly intact. Ambulates with a walker. The dressing is intact right lower extremity. There is no erythema or drainage or sign of infection. Soft tissue edema is mild. Mild Fluid/blood collection is palpable. She is easily able to straight leg raise and flex and extend her knee. CMS is intact right lower extremity. Calves are soft and nontender. Const Vital Signs, click to edit/add: Vital Signs - 24 hr 12/28/23 11:11 12/28/23 12:20 12/28/23 12:25 Temperature 99.0 F Pulse Rate 80 75 68 Pulse Rate [Left Pulse Oximeter] Respiratory Rate 16 16 16 Blood Pressure 154/71 H 166/86 H 135/88 Blood Pressure [Right Arm] Pulse Oximetry 96 96 95 Oxygen Delivery Method Nasal Cannula Nasal Cannula Oxygen Flow Rate 3 3 12/28/23 14:47 12/28/23 14:55 12/28/23 15:00 Temperature 97.6 F Pulse Rate 69 75 78 Pulse Rate [Left Pulse Oximeter] Respiratory Rate 14 16 14 Blood Pressure 116/57 L 120/56 L 118/70 Blood Pressure [Right Arm] Pulse Oximetry 93 94 94 Oxygen Delivery Method Nasal Cannula Oxygen Flow Rate 2 12/28/23 15:05 12/28/23 15:10 12/28/23 15:15 Temperature 96.8 F L Pulse Rate 75 74 75 Pulse Rate [Left Pulse Oximeter] Respiratory Rate 12 14 15 Blood Pressure 129/51 L 132/73 142/63 H Blood Pressure [Right Arm] Pulse Oximetry 93 94 95 Oxygen Delivery Method Nasal Cannula Oxygen Flow Rate 2 12/28/23 15:22 12/28/23 15:22 12/28/23 15:30 Temperature 96.4 F L 96.4 F L 96.4 F L Pulse Rate 75 Pulse Rate [Left Pulse Oximeter] 75 Respiratory Rate 16 16 16 Blood Pressure Blood Pressure [Right Arm] 109/53 L 109/53 L 113/64 Pulse Oximetry 93 93 Oxygen Delivery Method Room Air Room Air Room Air Oxygen Flow Rate 12/28/23 15:45 12/28/23 15:45 12/28/23 16:00 Temperature 96.4 F L 96.4 F L 96.4 F L Pulse Rate Pulse Rate [Left Pulse Oximeter] 81 74 77 Respiratory Rate 16 16 16 Blood Pressure Blood Pressure [Right Arm] 151/62 H 116/61 101/40 L Pulse Oximetry 95 96 96 Oxygen Delivery Method Room Air Room Air Room Air Oxygen Flow Rate 12/28/23 16:15 12/28/23 16:30 12/28/23 17:00 Temperature 96.4 F L 96.4 F L 96.4 F L Pulse Rate Pulse Rate [Left Pulse Oximeter] 74 73 73 Respiratory Rate 16 16 16 Blood Pressure Blood Pressure [Right Arm] 120/78 109/53 L 117/88 Pulse Oximetry 96 96 95 Oxygen Delivery Method Room Air Room Air Room Air Oxygen Flow Rate 12/28/23 18:00 12/28/23 19:00 12/28/23 20:00 Temperature 96.4 F L 97 F L 97 F L Pulse Rate Pulse Rate [Left Pulse Oximeter] 81 72 75 Respiratory Rate 16 18 16 Blood Pressure Blood Pressure [Right Arm] 151/62 H 133/73 136/63 Pulse Oximetry 95 92 96 Oxygen Delivery Method Room Air Room Air Room Air Oxygen Flow Rate 12/28/23 21:00 12/28/23 23:00 12/29/23 03:00 Temperature 97.1 F L 97.1 F L 97.1 F L Pulse Rate Pulse Rate [Left Pulse Oximeter] 80 69 88 Respiratory Rate 16 18 18 Blood Pressure Blood Pressure [Right Arm] 119/74 122/57 L 168/68 H Pulse Oximetry 97 92 93 Oxygen Delivery Method Room Air Room Air Room Air Oxygen Flow Rate Assessment and Plan Assessment and plan (1) Status post total right knee replacement: Problem details: 12/28/2023, Dr. Chaidez Status: Acute Assessment and Plan: Plan for discharge is today to home if they meet discharge criteria. DVT prophylaxis includes aspirin 81 mg twice daily x1 month, Fabrizio stockings x1 month may remove for 1 hr per day, frequent ambulation Remove dressing in 1 week. Observe wound and phone Orthopedics with any questions or concerns Return to clinic in 1 week for a wound check Return to clinic in 6 weeks with surgeon Minimize narcotic use. Wean off and discontinue soon as possible. Activities as tolerated. No strenuous activity. Outpatient physical therapy as scheduled. Ice and elevate the operative extremity. No restriction on ice. Despite her allergies to hydrocodone and codeine. She has tolerated oxycodone well in the hospital. Magi has attended strengthening workouts 4 times per week prior to surgery which has been definitely beneficial and will be beneficial to her moving forward. She is encouraged to continue that for life along with dietary changes to assist with her metabolic dysfunction.
[2023-12-29 08:38] VITALS: BP 144/63; PULSE 83; RESP 16; TEMP 36.2; O2SAT 97
[2023-12-29] MEDS: AMLODIPINE 10 MG TABLET PO (08:41)
[2023-12-29] MEDS: ASPIRIN 81 MG TABLET EC PO (08:41)
[2023-12-29] MEDS: ESCITALOPRAM 10 MG TABLET 5 MG PO (08:43)
[2023-12-29] MEDS: LOSARTAN POTASSIUM 50 MG TABLET 100 MG PO (08:44)
[2023-12-29] MEDS: glipiZIDE XL 5 MG TAB 20 MG PO (08:44)
[2023-12-29] MEDS: METFORMIN ER 500 MG 1000 MG PO (08:45)
[2023-12-29] MEDS: SENNOSIDES 1 TAB TABLET 2 TAB PO (08:50)
[2023-12-29] MEDS: INSULIN ASPART 100 UNIT/ML SUBCUT (08:50)
--- NOTE | 2023-12-29 12:15 | PC.NURSE ---
Patient discharged home with sister and son. All belongings sent with patient. Patient was tolerating a regular diet. Did not have any pain this morning prior to PT, but did develop quite a bit of incisional pain after PT. No drainage noted on dressing and this was intact. Patient had taken 5mg oxycodone prior to PT and an additional 5mg post PT. Ice was also applied. Patients son concerned that patient is foggy from the oxycodone. Explained to him that these were the side affects. Patient wondering if there is something else she can have other than tylenol and oxy. Messaged ortho and they recommended Tramadol but patients son hallucinates on tramadol and felt maybe they should just stick with the oxy and tylenol combination. Patient agreed to this. Hospitalist visited with patient and family as well. Patients pain was much better after the additional dose of oxy was given. PIV was taken out and catheter intact. Patient was voiding without difficulty. TEDs present and skin intact. Passing flatus but no BM yet. Had some nausea with the oxycodone but relieved with having crackers. CWMS was good in right foot. Discharge instructions and follow up appointments were reviewed and understood by patient and sister. Patient left via wheelchair escort.
== END 2023-12-29 12:44 | disposition home or self-care (01) ==
LOC: OR 10:30 → MEDSURG 10:31
PROVIDERS: PCP Family Medicine; Visit Provider Orthopaedic Surgery
PROC: (CPT 27447; principal; 2023-12-28 12:45)
DX: M17.11 Unilateral primary osteoarthritis, right knee (principal); G89.18 Other acute postprocedural pain; Z68.39 Body mass index [BMI] 39.0-39.9, adult; I10 Essential (primary) hypertension; E11.9 Type 2 diabetes mellitus without complications; F41.9 Anxiety disorder, unspecified; E78.5 Hyperlipidemia, unspecified; E66.9 Obesity, unspecified
CPT/HCPCS: 27447; 01402; 36415; 64447; 64454; 73560; 76942; 82565; 82962; 84132; 84295; 84520; 85025; 85610; 97110; 97116; 97161; 97165; 97535; A9270; C1776; J0690; J1100; J2250; J2405; J2704; J2795; J3010; J3490; J7120

== ENCOUNTER 2024-02-14 10:45 | Outpatient (RCR) | payer MEDICARE, BC, SELFPAY ==
--- NOTE | 2023-12-21 12:59 | PT.OPEX ---
PT [place] Out[facility] Eval PT [facility] Outpatient Eval Start: 12/21/23 07:53 Freq: Status: Active Protocol: Document 12/21/23 07:54 AMS (Rec: 12/21/23 12:33 AMS [id number]) E-signed By Josi Leon PT Physical Therapy Outpatient Evaluation Insurance Information Recert Due Date 03/15/24 Insurance Name Medicare B,Blue Cross/Blue Shield Medical Diagnosis S/p right total knee arthroplasty Unilateral osteoarthritis of right knee Presence of right artificial knee joint Treating Diagnosis Aftercare following joint replacement Muscle weakness Right knee pain Right knee stiffness Difficulty walking Referring MD Elmer Chaidez Subjective Subjective Magi is a new patient in my office today. She is a pleasant 68yr old female. Previous Dr. Eagle patient. Referred to me by Dr. Keller . Presents with pain in both knees right greater than left. She reports a 4 year history of medial pain on the right. Over the past year this has affected her quality of life. Pain is on the inside part of the left knee as well and has been present for the past 3 months. -Dr. Chaidez, 07/19/23, confirmed by patient Magi is a 68-year-old female who presents to physical therapy 1 week prior to right total knee arthroplasty scheduled for 12/28/[address] Chaidez. 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 X-rays have shown severe osteoarthritis medially. The pain is of the medial knee and has gradually gotten worse over the last 5 years. Functional limitations/ aggravating factors include going downstairs, walking, squatting, and standing. Prior to pain getting worse, she used to walk 10,000 to 12,000 steps/day, but now closer to 5 ,000 per day due to pain. She does resistance training ( upper and lower 2x/week each) and biking 4x/week at [employer]. Previous treatments include physical therapy, activity modification, and OTC medications, which helped some. Her left knee has stopped hurting now. Pt owns FWW that she can use after surgery. Please see pre-op note for complete home set up. Pt's sister will be available to stay with pt 24-7 for the days following surgery. She is able to live on the main floor of her home and doesn't need to do stairs to basement. Has 3 stairs to enter with railing on right. Goals are to return to her walks. Pt lives alone and enjoys volunteering, reading, and staying active in her free time. 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 SLS: 1 sec B Palpation/joint mobility: No tenderness to palpation along medial or lateral joint line/ surrounding musculature. Swelling/observation: Mild swelling medial right knee. No other appreciable swelling noted. Functional Test Performed & Score LEFS: Not today Assessment Assessment/Impression Patient is a 68 year old female presenting for pre- operative visit prior to right total knee arthroplasty scheduled for 12/28/23. Upon assessment, patient demonstrates decreased knee ROM, decreased proximal hip force output, and antalgic gait pattern. These impairments lead to difficulties with walking, stairs, standing, squatting, and exercising at the gym. Patient will be seen post operatively to reassess impairments that will be addressed with skilled care. Magi would greatly benefit from skilled PT in order to progress strength, ROM, and ambulation post operatively in order to perform all household tasks and ADLs without significant difficulty or discomfort. Primary Functional Limitations walking, stairs, standing, squatting, and exercising at the gym Plan of Care Rehabilitation Potential Good Physical Therapy Goals After pre-op visit: ? Patient will be independent with HEP ? Patient will verbalize knowledge of stair navigation and proper sequencing ? Patient will have knowledge on home adaptations and use of assistive devices post operatively ? Patient will have knowledge of edema management ALL MET Coordination/Communication With Referral Source Treatment Plan/Direct Interventions Electrical Stimulation,Gait Training,Joint Mobilization, Manual Therapy,Neuromuscular Re-ed,Self-Care/Home Management,Therapeutic Activities,Therapeutic Exercises Frequency/Duration 1x visit prior to surgery on . Patient scheduled to start outpatient PT s/p TKA on 12/30/23. Has HEP to start with pre-operatively. Patient Will Be Discharged From Therapy Completion of LTG(s), Independent w/HEP, Independently Progressing Evaluation Billing Untimed Code Treatment Minutes 15 Complexity Low Certification Information Initial Certification Date 12/21/23 Ending Certification Date 03/15/24 Provider Signature Shows Agreement With POC & Medical Necessity Physician Signature & Date Requested Please Sign/Date Here Physician Comment/Change : Physician NPI Number #
== END 2024-02-21 11:55 | disposition home or self-care (01) ==
PROVIDERS: PCP Family Medicine; Visit Provider Orthopaedic Surgery
DX: M17.11 Unilateral primary osteoarthritis, right knee (principal); Z96.651 Presence of right artificial knee joint; Z47.1 Aftercare following joint replacement surgery; M25.561 Pain in right knee; M25.661 Stiffness of right knee, not elsewhere classified; R26.2 Difficulty in walking, not elsewhere classified; M62.81 Muscle weakness (generalized); Z51.89 Encounter for other specified aftercare
CPT/HCPCS: 97110; 97112; 97116; 97140; 97161; 97164

== ENCOUNTER 2024-07-25 09:44 | Outpatient (CLI) | payer MEDICARE, BC, SELFPAY | END 2024-07-25 09:45 | disposition home or self-care (01) | PROVIDERS: PCP Family Medicine; Visit Provider Family Medicine | DX: E11.9 Type 2 diabetes mellitus without complications (principal); I10 Essential (primary) hypertension; E78.5 Hyperlipidemia, unspecified; E66.9 Obesity, unspecified; R80.9 Proteinuria, unspecified | CPT/HCPCS: 80053; 80061; 82043; 82570 ==

== ENCOUNTER 2024-08-08 14:00 | Outpatient (RCR) | payer MEDICARE, BC, SELFPAY ==
--- NOTE | 2024-08-01 18:07 | PT.OPEX ---
PT [place] Outpatient Eval PT [facility] Outpatient Eval Start: 08/01/24 14:17 Freq: Status: Active Protocol: Document 08/01/24 14:20 DEYVI (Rec: 08/01/24 17:57 DEYVI [id number]) E-signed By Corky Dalal PT Physical Therapy Outpatient Evaluation Insurance Information Insurance Name Medicare B,Blue Cross/Blue Shield Medical Diagnosis BPPV H81.10 Treating Diagnosis Imbalance Cervical spine dysfunction Dizziness Referring MD Ferrer Subjective Subjective Pt. comes to therapy today with complaints of more acute dizziness symptoms since last when she awakened with a lot of dizziness with difficulty walking to the bathroom. She then has had less but continued dizziness symptoms in the am which improve during the day. She does report having vertigo symptoms 20 years ago and she has avoided lying flat on her back due to having dizziness symptoms. She had vertigo and vomited during BPPV test with MD. She denies having any significant balance issues, neck pain issues, or visual issues. PMH includes; Type 2 Diabetes, OA, and allergies. Pain Comments 3 Date of Last Physician Visit 07/27/24 Current Work Status Retired Objective Other/Pertinent Objective CROM: WFL for age with mild loss of bilateral rotation and side bending without pain Posture: forward head and rounded shoulders VOMS: All normal today 4-item DGI: 10/12 Positive Right [place] Hallpike Balance: mild balance deficits with Romberg on unstable surface with eyes closed Functional Test Performed & Score 4-item DGI = 10/12 Assessment Assessment/Impression Objectively, she demonstrates; mild balance deficits noted during Romberg tests; mild CROM deficits; hypertonus/ guarding of C-paraspinal muscles especially in upper cervical area; 10/12 score on 4-item DGI; normal convergence , VOR, VOR cx, smooth pursuit and saccades; and positive BPPV testing with positive right [place] Hallpike for vertigo and nystagmus symptoms. She would benefit from skilled therapy working on addressing her BPPV along with her C- spine and balance deficits. Primary Functional Limitations lying supine; walking to bathroom in the morning. Plan of Care Rehabilitation Potential Excellent Physical Therapy Goals Therapy Goals to be reached in 8-10 weeks. 1. Pt will display resolution of BPPV symptoms for greater than 7 consecutive days to improve safety of ADL's. 2. Pt. will display improved Romberg balance with eyes closed to WNL for age. 3. Pt. will will display improved 4-item DGI to 11/09 to improve dynamic gait tasks. Coordination/Communication With Referral Source Treatment Plan/Direct Interventions Canalith Repositioning,Joint Mobilization,Manual Therapy, Neuromuscular Re-ed,Self-Care/ Home Management,Therapeutic Exercises Frequency/Duration 1-2 times a week for 6-8 visits Patient Will Be Discharged From Therapy Independent w/HEP, Independently Progressing Evaluation Billing Complexity Moderate Certification Information Initial Certification Date 08/01/24 Ending Certification Date 10/30/24 Provider Signature Required Yes Provider Signature Shows Agreement With POC & Medical Necessity Physician NPI Number Write NPI# Here Physician Comment/Change : Physician Signature & Date Requested Please Sign/Date Here
== END 2024-12-01 09:41 | disposition home or self-care (01) ==
PROVIDERS: PCP Family Medicine; Visit Provider Family Medicine
DX: H81.11 Benign paroxysmal vertigo, right ear (principal); R26.81 Unsteadiness on feet; Z51.89 Encounter for other specified aftercare
CPT/HCPCS: 95992; 97140; 97162

== ENCOUNTER 2024-12-29 08:42 | Outpatient (CLI) | payer MEDICARE, BC, SELFPAY ==
--- NOTE | 2024-12-29 08:45 | CRLHL7_ITS ---
For Patients: As a result of the Cures Act, medical imaging exams and procedure reports are released immediately into your electronic medical record. You may view this report before your referring provider. If you have questions, please contact your health care provider. BILATERAL SCREENING MAMMOGRAM WITH COMPUTER-AIDED DETECTION AND TOMOSYNTHESIS TECHNIQUE: CC and MLO views were obtained. These mammographic images have been obtained using full-field digital technique. These mammographic images were interpreted with the benefit of computer-aided detection. Breast tomosynthesis was used in this interpretation. COMPARISON FILM: 04/23/23, 09/10/21, 07/19/20. FINDINGS: There are scattered areas of fibroglandular density. IMPRESSION: There is no radiographic evidence for malignancy. ASSESSMENT: BI-RADS Category 1: Negative RECOMMENDATION: Routine screening mammogram in 1 year. A lay language report of this examination will be provided to the patient. ALLI PHILLIPS M.D. Diagnostic Radiologist [email or web address] ROSALINE/stacey Transcribed: 12/29/2024, 2:[address]/Dictated by: Alli Phillips MD @ 12/29/2024 10:16:00 AM (Electronically Signed)
== END 2024-12-29 08:43 | disposition home or self-care (01) ==
LOC: MAMMO 08:43
PROVIDERS: PCP Family Medicine; Visit Provider Family Medicine
DX: Z12.31 Encounter for screening mammogram for malignant neoplasm of breast (principal)
CPT/HCPCS: 77063; 77067

== ENCOUNTER 2025-01-30 14:19 | Outpatient (CLI) | payer MEDICARE, BC, SELFPAY | END 2025-01-30 14:20 | disposition home or self-care (01) | PROVIDERS: PCP Family Medicine; Visit Provider Family Medicine | DX: E11.29 Type 2 diabetes mellitus with other diabetic kidney complication (principal); E78.5 Hyperlipidemia, unspecified; I10 Essential (primary) hypertension; E66.9 Obesity, unspecified; R80.9 Proteinuria, unspecified; F41.9 Anxiety disorder, unspecified; G25.81 Restless legs syndrome | CPT/HCPCS: 80048; 82043; 82570 ==

== ENCOUNTER 2025-06-12 10:01 | Outpatient (RCR) | payer MEDICARE, BC, SELFPAY ==
--- NOTE | 2025-06-12 11:52 | PT.OPEX ---
PT [place] Outpatient Eval PT [facility] Outpatient Eval Start: 06/12/25 09:46 Freq: Status: Active Protocol: Document 06/12/25 09:53 DEYVI (Rec: 06/12/25 11:05 DEYVI [id number]) E-signed By Corky Dalal PT Physical Therapy Outpatient Evaluation Insurance Information Insurance Name Medicare B,Blue Cross/Blue Shield Medical Diagnosis BPPV Treating Diagnosis Right posterior canal BPPV Imbalance Dizziness headache Referring MD Ferrer Subjective Preferred Name Magi Peraza Pt. reports ongoing intermittent vertigo symptoms when getting up from bed every 3-4 weeks or so. She has been having to go back to bed when symptomatic due to worsening symptoms. She also reports having a right frontal headache for an hour or so after the vertigo attack. She is unable to sleep flat needing an elevated bed and pillow. She has been treated for BPPV here in therapy in the past successfully. She denies any neck pain or visual problems currently. Her balance seems ok other than when she is having an attack. PMH includes; diabetes, OA, right TKA, HTN. Pain Comments 0/10 headache now Date of Last 06/06/25 Physician Visit Current Work Status Retired Objective Other/Pertinent CROM: WFL for age Objective Palpation: NT Strength: NT Gait: normal Romberg: Mild sway with eyes closed 4 item DGI: 10/10 Modified vertebral artery test: negative BPPV testing: positive right [place] Hallpike Head Thrust: NT H-test: normal Saccades: normal Convergence: normal VOR: NT VORCx: NT Functional Test 4 item DGI: 10/10 Performed & Score Assessment Assessment/ 70 year old female who comes to therapy today with Impression primary complaint of vertigo and right frontal headache after each vertigo attack. Aggravating factors are getting out of bed with an incidence of every 3-4 weeks . Alleviating factors include lying back down in bed with head elevated. Objective findings include; Functional CROM without sxs provocation; mild sway with Romberg eyes closed; 10/10 4 item DGI; normal convergence, saccades and smooth pursuit; and positive right [place] Hallpike with right sided posterior canal BPPV. She would benefit from skilled therapy working on alleviating BPPV symptoms with canalith maneuvers, along with manual therapy to C -spine as needed and progressive balance activities. Primary Functional Getting up out of bed and walking when dizzy Limitations normal ADL's when dizzy Plan of Care Rehabilitation Excellent Potential Physical Therapy Therapy Goals to be reached in 8-10 weeks. Goals 1. Pt will display resolution of BPPV symptoms for greater than 7 consecutive days to improve safety of ADL's. 2. Pt. will display improved Romberg balance with eyes closed to WNL for age. 3. Pt. will will display improved 4-item DGI to 11/09 to improve dynamic gait tasks. Coordination/ Referral Source Communication With Treatment Plan/ Canalith Repositioning,Joint Mobilization,Manual Direct Interventions Therapy,Neuromuscular Re-ed,Self-Care/Home Management, Therapeutic Exercises Frequency/Duration Weekly to every other week for 4-8 weeks. Patient Will Be Independent w/HEP,Independently Progressing Discharged From Therapy Evaluation Billing Complexity Low Certification Information Initial 06/12/25 Certification Date Ending Certification 09/10/25 Date Provider Signature Yes Required Provider Signature POC & Medical Necessity Shows Agreement With Physician NPI Number Write NPI# Here Physician Comment/ : Change Physician Signature Please Sign/Date Here & Date Requested
== END 2025-08-27 15:42 | disposition home or self-care (01) ==
PROVIDERS: PCP Family Medicine; Visit Provider Family Medicine
DX: H81.11 Benign paroxysmal vertigo, right ear (principal); Z51.89 Encounter for other specified aftercare
CPT/HCPCS: 95992; 97161

== ENCOUNTER 2025-10-09 08:42 | Outpatient (CLI) | payer MEDICARE, BC, SELFPAY ==
--- NOTE | 2025-10-09 09:55 | P.ANES_ITS ---
Anesthesia Charges Start Date/Time Anesthesia Start Date: 10/09/25 Anesthesia Start Time: 09:25 Stop Date/Time Anesthesia Stop Date: 10/09/25 Anesthesia Stop Time: 09:54 Coding CPT Codes CPT Codes: ANES LWR INTST NDSC NOS - 74995 ([id number]) P3 - PATIENT W/SEVERE SYS DISEASE, QK - EXHAUST EMISSIONS INSPECTOR 2-4 CNCRNT ANES PROC, QX - ASSOCIATE ENGINEER SVC W/ MD MED DIRECTION
--- NOTE | 2025-10-09 09:55 | W.ANESCHARGE ---
Anesthesia Charges Start Date/Time Anesthesia Start Date: 10/09/25 Anesthesia Start Time: 09:25 Stop Date/Time Anesthesia Stop Date: 10/09/25 Anesthesia Stop Time: 09:54 Coding CPT Codes CPT Codes: ANES LWR INTST NDSC NOS - 32045 ([id number]) P3 - PATIENT W/SEVERE SYS DISEASE, QK - DERMATOLOGIST MANAGING PARTNER 2-4 CNCRNT ANES PROC, QX - SORT OPERATIONS SUPERVISOR SVC W/ MD MED DIRECTION
--- NOTE | 2025-10-09 10:34 | P.ANES_ITS ---
Anesthesia Charges Start Date/Time Anesthesia Start Date: 10/09/25 Anesthesia Start Time: 09:25 Stop Date/Time Anesthesia Stop Date: 10/09/25 Anesthesia Stop Time: 09:54 Summary Extremes of Age - Over 70 or under 1: MDA Coding CPT Codes CPT Codes: ANES LWR INTST NDSC NOS - 23151 ([id number]) QK - MECHANICAL ENGINEERING COOP 2-4 CNCRNT ANES PROC, QX - DIRECTOR EMERGENCY SVC W/ MD MED DIRECTION, P3 - PATIENT W/SEVERE SYS DISEASE Additional Codes: Summary - Extremes of Age - Over 70 or under 1: MDA ([id number])
== END 2025-10-09 08:43 | disposition home or self-care (01) ==
LOC: OP CLINIC 08:43
PROVIDERS: PCP Family Medicine; Visit Provider Surgery
DX: D12.3 Benign neoplasm of transverse colon (principal); D12.4 Benign neoplasm of descending colon; Z86.0101 Personal history of adenomatous and serrated colon polyps
CPT/HCPCS: 00811; 45385; 99100; J2704